=== PATIENT | female | born 1935 | race Two or more races ===

== ENCOUNTER 2020-04-01 12:34 | Emergency (ER) | payer SELFPAY ==
[~2020-04-01] VITALS: Ht 167.6 cm; Wt 73.0 kg
[2020-04-01 17:43] LABS: CHLORIDE 102 mEq/L (98-107)
[2020-04-01 17:48] LABS: ETHANOL BLOOD < 10 mg/dL
[2020-04-01 18:50] LABS: BASOPHILS % 0.1 % (0.0-2.0); HEMATOCRIT. 36.6 % (36.0-48.0); HEMOGLOBIN. 12.4 g/dL (12.0-16.0); LYMPHOCYTES % 7.5 % (20.0-50.0); MEAN CORPUSCULAR HEMOGLOBIN 31.3 pg (28.0-32.0); MEAN CORPUSCULAR VOLUME 92.3 fL (81.0-99.0); MEAN PLATELET VOLUME 8.5 fl (7.4-10.4); MONOCYTES % 4.3 % (2.0-8.0); NEUTROPHILS % 88.1 % (40.0-76.0); PLATELET 218 x1000/uL (130-400); RED BLOOD CELL COUNT 3.97 mill/uL (4.2-5.4); RED CELL DISTRIBUTION WIDTH 12.5 % (11.6-14.6)
[2020-04-01] MEDS ORDERED: ACETAMINOPHEN 325MG TABLET PO ONE (20:00)
[2020-04-01 20:22] VITALS: BP 124/60
== END 2020-04-01 20:59 | disposition home or self-care (01) ==
LOC: ER 12:48
DX: R55 Syncope and collapse (principal)
CPT/HCPCS: 36415; 71045; 80053; 80320; 84484; 85025; 99285; G0480